=== PATIENT | female | born 1985 | race Caucasian/White ===

== ENCOUNTER 2022-04-13 08:31 | Day surgery (SDC) | payer OTHER ==
[~2022-04-13] VITALS: Ht 167.6 cm; Wt 54.0 kg
[~2022-04-13 08:31] MED LIST: ACYC400 PO; AMPDEX30CR PO; BUPRENORPHINE HC2 MG SL; CLON.5 PO; MELA3 PO; MULVITA PO; ONDA4ODT MM; VITAMIN D310 MC4 PO
--- NOTE | 2022-04-13 10:17 | NUR ---
Ambulatory in Day SurgeryPatient up to Ambulate independently. Gait steady. [place] warming gown applied. Surgical site prepped with 2% Chlorhexidine cloth wipe. Lungs clear T/O to Auscultation.Lungs clear T/O to Auscultation. Patient confirms NPO status and agrees with scheduled surgery. Patient confirms NPO status and agrees with scheduled surgery. Pre-Op teaching done. Pt verbalizes understanding. Patient States Post-Procedure ride home has been arranged. Patient reports completing Chlorhexadine shower X2 prior to admission to hospital.
--- NOTE | 2022-04-13 13:08 | NUR ---
REPORT FROM LANNY FLYNN RN. PT SITTING UP IN BED, REPORTS 5/10 SHARP AND ACHING PAIN OVER MEDIPORT REMOVAL SITE. PT TOLERATING PO FLUIDS, ABLE TO REPOSITION SELF IN BED.
--- NOTE | 2022-04-13 13:31 | NUR ---
Patient up to Ambulate independently. Gait steady. Discharge instructions reviewed with patient. Patient verbalizes understanding. Copy given to patient to take home. Dressing to procedure site clean, dry, intact with no visible drainage, swelling, erythema or bruising noted. Patient States Post-Procedure ride home has been arranged. Discharged via wheelchair to private car for ride home. ALL BELONGINGS RETURNED TO PATIENT.
== END 2022-04-13 23:10 | disposition home or self-care (01) ==
LOC: ORSCMMR 08:31
PROVIDERS: Surgery
PROC: 0HBU0ZX Excision of Left Breast, Open Approach, Diagnostic (ICD-10-PCS; principal; 2022-04-13 10:00)
PROC: 05HM33Z Insertion of Infusion Device into Right Internal Jugular Vein, Percutaneous Approach (ICD-10-PCS; principal; 2022-04-13 10:00)
DX: D24.2 Benign neoplasm of left breast (principal); Z95.828 Presence of other vascular implants and grafts; F17.210 Nicotine dependence, cigarettes, uncomplicated; F41.9 Anxiety disorder, unspecified; F31.9 Bipolar disorder, unspecified; Z79.899 Other long term (current) drug therapy; Z85.72 Personal history of non-Hodgkin lymphomas
CPT/HCPCS: 88305; A9270; J0690; J1100; J2250; J2405; J2704; J2795; J3010; J7120

== ENCOUNTER → 2022-10-19 | Outpatient (CLI) | payer OTHER | LOC: LAB SHORT 17:09 → LAB 17:09 | DX: F11.20 Opioid dependence, uncomplicated (principal) | CPT/HCPCS: G0480 ==